=== PATIENT | male | born 1970 | race Caucasian/White ===

== ENCOUNTER 2023-05-02 08:05 | Emergency (ER) | payer BC, SELFPAY ==
[2023-05-02 08:06] VITALS: BP 163/96; PULSE 86; RESP 16; TEMP 36.6; O2SAT 98; BMI 29.6
--- NOTE | 2023-05-02 08:40 | EX.ED.DYSGE1 ---
HPI History of Present Illness Chief Complaint: General Illness Informant: patient Narrative Narrative: Patient's presents on Tuesday morning feeling poorly since he had an episode of vertigo when he woke up Tuesday. He states that started all of a sudden upon rising out of bed. It lasted for relatively short period of time and then seem to go away. He states he has not felt well since. He states is very hard to describe. He has no trouble walking, he has no vision disturbances, he felt tingling all over his body at 1 point on Tuesday but never lateralizing and it went away. He states he really has not had much in the way of vertigo since then. He denies headache. No loss consciousness. Some nausea off and on. No fevers or chills, no other symptoms. States he has felt like this in the past may be once or twice a year but usually lasts for 15 minutes and goes away. Denies any recent illness or injury that he knows of besides the above symptoms. At any point in the past week and he denies any changes in his hearing, tinnitus, otorrhea, or earache. He also notices that there is a soft lump on top of his left shoulder that he does remember being there before. [facility] Medical History Hx of fracture of ankle Hx of fracture of clavicle Hx of head injury Home Medications doxycycline monohydrate 100 mg capsule 200 mg (2 x 100 mg) PO ONCE #2 caps 02/27/18 [Rx Last Taken Unknown] meclizine 25 mg tablet 25 mg PO Q8H PRN PRN Dizziness #30 tabs 05/02/23 [Rx Last Taken Unknown] Allergy/AdvReac Type Severity Reaction Status Date / Time No Known Allergies Allergy Verified 05/02/23 08:10 Family History (Updated 02/27/18 @ 16:47 by Kyra Tejada) Other Cancer Diabetes Hypertension Social History Smoking Status: Never smoker Smokeless tobacco user: chewing tobacco alcohol intake: never ROS ROS ED Constitutional Constitutional ED: Reports malaise; Denies chills or fever(s) Eyes Eyes: Denies change in vision or diplopia ENT ENT ED: Reports vertigo; Denies headache(s), hearing loss, loss taste/smell, rhinorrhea, sore throat or tinnitus Cardiovascular Cardiovascular: Denies chest pain or palpitations Respiratory/Chest Respiratory/Chest: Denies cough or dyspnea Gastrointestinal Gastrointestinal: Reports nausea; Denies abdominal pain, diarrhea or vomiting Genitourinary Genitourinary ED: Denies dysuria or hematuria Musculoskeletal Musculoskeletal: Denies back pain or neck pain Integumentary Denies abscess or rash Neurologic Neurologic: Reports paresthesias; Denies headache(s) or weakness Psychiatric Psychiatric: Denies anxiety or suicidal thoughts EXAM Physical Exam Const Vital Signs: 05/02/23 08:06 05/02/23 08:15 Temperature 97.9 F Temperature Source Temporal Pulse Rate 86 Respiratory Rate 16 Respiratory Effort Normal Non-Labored Blood Pressure 163/96 H Blood Pressure Mean 118 Pulse Ox 98 Oxygen Delivery Method Room Air Positive well nourished and well developed Constitutional Narrative: Well-appearing General Appearance ED: well developed and NAD HEENT Reports TM's clear and moist mucous membranes normocephalic and atraumatic Tympanic Membrane ED: Yes TM's clear Eyes PERRL and EOMs intact bilaterally Eyes Narrative: No pathologic horizontal, vertical, rotatory nystagmus Neck full ROM, no lymphadenopathy and supple Neck Narrative: Soft mobile nontender subcutaneous mass approximately 2 or 3 cm in diameter, between the left acromion and the neck proper, posterior to the clavicle. No overlying erythema. Chest Wall inspection of chest normal and palpation of chest normal Resp normal respiratory effort and clear to auscultation bilaterally Cardio regular rate, regular rhythm and no murmurs Rate: Negative for bradycardia or tachycardic GI non-tender, non-distended, hepatosplenomegaly and no masses Auscultation: normoactive bowel sounds Palpation: soft Back/Spine no CVA tenderness General Back: other FROM Extremity normal to inspection General Extremety ED: Negative for edema, pulses abnormal or tenderness General Extremity: Negative for edema or pulses abnormal Neuro oriented x3, CN's II-XII intact bilaterally and no sensory deficits noted Neuro Narrative: Normal [id number] and [id number]-[id number] bilaterally. Normal gait. No ataxia. Sensorium / Orientation: awake and alert Motor Exam: strength 5/5 throughout Psych mental status grossly normal Skin no rashes or lesions noted and no wounds MDM MDM MDM Narrative Medical decision making narrative: Patient is not actively having vertigo now, his exam is normal, the lump on top of his left shoulder feels like a lipoma, I reassured him on this and to keep an eye on it to watch for changes in size and a discoloration on top of it. Obtain some basic labs since he is not feeling well and that part is unexplained by episodes of vertigo that are not currently present. The are reviewed and all unremarkable. Patient reassured, given a prescription for meclizine, and advised to follow-up with his doctor. I do not think he needs any emergent imaging or other testing at this time, the vertigo is peripheral and he is not in need of advanced brain imaging at this time for any reason, he has no lateralizing neurologic symptoms or symptoms of encephalopathy. He does not have a PCP so he was referred to the next doctor on the unassigned list, Dr. Ambrosio. Lab Data Attestation: I reviewed the patient's lab results. Labs: Laboratory Results - last 24 hr 05/02/23 09:10 WBC 7.7 RBC 5.29 Hgb 15.8 Hct 48.3 MCV 91.3 MCH 29.9 MCHC 32.7 RDW Std Deviation 44.8 H RDW Coeff of Deni 13.2 Plt Count 217 MPV 10.0 Immature Gran % (Auto) 0.400 Neut % (Auto) 73.4 H Lymph % (Auto) 18.0 L [place] % (Auto) 5.6 Eos % (Auto) 1.8 Baso % (Auto) 0.8 Absolute Neuts (auto) 5.6 Absolute Lymphs (auto) 1.38 Nucleated RBC % 0 Sodium 139 Potassium 4.0 Chloride 109 H Carbon Dioxide 28.0 Anion Gap 2 L BUN 15 Creatinine 1.12 Estim Creat Clear Calc 67.11 Est GFR (MDRD) Af Amer 89 Est GFR (MDRD) Non-Af 73 BUN/Creatinine Ratio 13.4 Glucose 123 H Calcium 9.3 Discharge Plan Triage Chief Complaint: General Illness ED Provider: David Parsons Dx/Rx/DC Orders Clinical Impression: Malaise, Peripheral vertigo Instructions: ED Vertigo, Unspecified Prescriptions: New meclizine [meclizine] 25 mg tablet 25 mg PO Q8H PRN PRN (Reason: Dizziness) Qty: 30 0RF No Action doxycycline monohydrate 100 mg capsule 200 mg PO ONCE Qty: 2 0RF Primary Care Provider: NOT,DEFINED Referrals: Janessa Ambrosio MD [Med Staff - [employer] Clerk] - 1 Week if not improving Disposition Disposition: Home, Self Care
[2023-05-02] MEDS: Meclizine HCl 25 MG Tablet PO (08:50)
[2023-05-02 09:21] LABS: Absolute Lymphocyte Count 1.38 X10^3/uL (0.83-4.51); Absolute Neutrophil Count 5.6 X10^3/uL (2.0-7.7); Basophil# 0.06 X10^3/uL; Basophil% 0.8 % (0-1); Eosinophil# 0.14 X10^3/uL; Eosinophils% 1.8 % (0-5); Hematocrit 48.3 % (40-54); Hemoglobin 15.8 g/dL (13.0-16.5); Lymphocyte # 1.38 X10^3/ul (0.83-4.51); Mean Corp Hgb Conc 32.7 g/dL (32-36); Mean Corpuscular Hgb 29.9 pg (27.0-32.0); Mean Corpuscular Volume 91.3 fL (80-94); Monocyte# 0.43 X10^3/uL; Monocyte% 5.6 % (0-10); NRBC Flagged by Analyzer 0 % (0-5); Neutrophil # 5.63 X10^3/uL (2.7-7.7); Neutrophil % 73.4 % (47-70); Platelet Count 217 K/mm3 (150-450); RBC Distribution Width CV 13.2 % (11.6-14.6); RBC Distribution Width SD 44.8 fl (35.1-43.9); Red Blood Count 5.29 M/mm3 (4.6-6.2); White Blood Count 7.7 K/mm3 (4.4-11.0)
[2023-05-02 09:35] LABS: Anion Gap 2 (5-15); BUN 15 mg/dL (7-18); BUN/Creat Ratio 13.4 RATIO (10-20); Calcium,Total 9.3 mg/dL (8.5-10.1); Chloride 109 mmol/L (98-107); Creatinine, Serum 1.12 mg/dL (0.70-1.30); EST Glomerular Filtration Rate 73 mL/min (>60); Est Glom Filt Rate - Afr Amer 89 mL/min (>60); Estimated Creatinine Clearance 67.11 ml/min; Glucose 123 mg/dL (74-106); Sodium Level 139 mmol/L (136-145)
[2023-05-02 10:52] VITALS: BP 140/74; PULSE 82; RESP 16; O2SAT 99
== END 2023-05-02 10:54 | disposition home or self-care (01) ==
PROVIDERS: Emergency Provider Emergency Medicine; Visit Provider Emergency Medicine
DX: R53.81 Other malaise (principal); R42 Dizziness and giddiness
CPT/HCPCS: 80048; 85025; 99283; A4216